=== PATIENT | male | born 1975 ===

== ENCOUNTER 2018-11-07 19:29 | Emergency (ER) | payer SELFPAY ==
--- NOTE | 2018-11-07 19:40 | Event Note ---
ED Screening Note Date of service: 11/07/18 Time: 19:36 ED Screening Note: This is a 43 y.o. M. that presents to the ER with right ear pain and painful bump on rectum. Pain in right ear is worse when he open his mouth. States bump on rectum is worse with sitting. States stools are liquid and solid balls for several weeks. PMH of HTN Blood pressure is elevated and patient took medication at midnight. Patient states he said something to PCP 4 months ago during visit and no change to med ication. He denies chest pain, SOB, palpitations, or visual changes. This initial assessment/diagnostic orders/clinical plan/treatment(s) is/are subject to change based on patients health status, clinical progression and re- assessment by fellow clinical providers in the ED. Further treatment and workup at subsequent clinical providers discretion. Patient/guardian urged not to elope from the ED as their condition may be serious if not clinically assessed and managed. Initial orders include:
[2018-11-07] MEDS ORDERED: CATAPRES PO ONE (21:35)
--- NOTE | 2018-11-07 21:40 | Emergency Department Report ---
ED ENT HPI - General Chief complaint: Earache Stated complaint: EAR PAIN Time Seen by Provider: 11/07/18 19:35 Source: patient Mode of arrival: Ambulatory Limitations: Language Barrier (licensed home inspector used) - History of Present Illness Initial comments: 43-year-old male with history of hypertension presents to ED with right ear pain and rectal pain. Patient reports onset of right ear pain one day ago, with associated discharge from the ear. Patient denies fever or sore throat. Denies any recent swimming activities. Patient also reports possible hemorrhoid. States has pain when he sits. Denies bloody stools. Patient also reported history of hypertension, states that he is noncompliant with his medication. States does not take his medication daily. Patient is currently on lisinopril, HCTZ, and metoprolol. MD complaint: ear pain -: days(s) (1) Location: R ear Severity: mild Quality: aching Consistency: constant Improves with: none Worsens with: eating Associated Symptoms: discharge from ear. denies: fever, cough, pain with swallowing, sore throat - Related Data Previous Rx's Medication Instructions Recorded Last Taken Type Amoxicillin [Amoxicillin TAB] 875 mg PO BID 10 Days #20 tablet 11/07/18 Unknown Rx Hydrocortisone [Anusol-Hc 2.5% TOP 1 applic RC BID PRN #30 gm 11/07/18 Unknown Rx CREAM] Naproxen [Naprosyn] 500 mg PO BID #20 tablet 11/07/18 Unknown Rx Allergies Allergy/AdvReac Type Severity Reaction Status Date / Time No Known Allergies Allergy Verified 11/07/18 19:32 ED Dental HPI - General Chief complaint: Earache Stated complaint: EAR PAIN Time Seen by Provider: 11/07/18 19:35 Source: patient Mode of arrival: Ambulatory Limitations: No Limitations - Related Data Previous Rx's Medication Instructions Recorded Last Taken Type Amoxicillin [Amoxicillin TAB] 875 mg PO BID 10 Days #20 tablet 11/07/18 Unknown Rx Hydrocortisone [Anusol-Hc 2.5% TOP 1 applic RC BID PRN #30 gm 11/07/18 Unknown Rx CREAM] Naproxen [Naprosyn] 500 mg PO BID #20 tablet 11/07/18 Unknown Rx Allergies Allergy/AdvReac Type Severity Reaction Status Date / Time No Known Allergies Allergy Verified 11/07/18 19:32 ED Review of Systems ROS: Stated complaint: EAR PAIN Other details as noted in HPI Comment: All other systems reviewed and negative Constitutional: denies: chills, fever ENT: ear pain. denies: throat pain Respiratory: denies: cough Gastrointestinal: other (reports rectal pain). denies: melena, hematochezia ED Past Medical Hx - Past Medical History Previous Medical History?: Yes Hx Hypertension: Yes - Surgical History Past Surgical History?: No - Social History Smoking Status: Never Smoker Substance Use Type: None - Medications Home Medications: Home Medications Medication Instructions Recorded Confirmed Last Taken Type Amoxicillin [Amoxicillin TAB] 875 mg PO BID 10 Days #20 tablet 11/07/18 Unknown Rx Hydrocortisone [Anusol-Hc 2.5% TOP 1 applic RC BID PRN #30 gm 11/07/18 Unknown Rx CREAM] Naproxen [Naprosyn] 500 mg PO BID #20 tablet 11/07/18 Unknown Rx ED Physical Exam - General Limitations: No Limitations General appearance: alert, in no apparent distress - Head Head exam: Present: atraumatic, normocephalic - Eye Eye exam: Present: normal appearance, PERRL, EOMI - ENT ENT exam: Absent: TM's normal bilaterally (right TM w/ erythema, discharge in canal) - Neck Neck exam: Present: normal inspection - Respiratory Respiratory exam: Present: normal lung sounds bilaterally. Absent: respiratory distress - Cardiovascular Cardiovascular Exam: Present: regular rate - GI/Abdominal GI/Abdominal exam: Absent: distended - Rectal Rectal exam: Present: hemorrhoids - Extremities Exam Extremities exam: Present: normal inspection - Neurological Exam Neurological exam: Present: alert, oriented X3, CN II-XII intact. Absent: motor sensory deficit - Psychiatric Psychiatric exam: Present: normal affect, normal mood - Skin Skin exam: Present: warm, dry, intact, normal color ED Course Vital Signs 11/07/18 11/07/18 11/07/18 19:32 19:35 21:26 Temperature 99.5 F 99.5 F 98.9 F Pulse Rate 94 H 94 H 93 H Respiratory 16 16 19 Rate Blood Pressure 219/146 Blood Pressure 219/146 195/125 [Right] O2 Sat by Pulse 97 97 96 Oximetry 11/07/18 11/07/18 11/07/18 21:49 21:50 22:19 Temperature Pulse Rate 90 Respiratory Rate Blood Pressure 168/115 203/133 184/129 Blood Pressure [Right] O2 Sat by Pulse Oximetry 11/07/18 11/07/18 22:49 23:00 Temperature Pulse Rate 78 Respiratory Rate Blood Pressure 189/133 Blood Pressure 168/101 [Right] O2 Sat by Pulse Oximetry ED Medical Decision Making - Medical Decision Making - pt advised to take BP meds daily - return precautions given - outpt f/u advised - Differential Diagnosis otitis media, otitis externa, HTN, hemorrhoids Critical care attestation.: If time is entered above; I have spent that time in minutes in the direct care of this critically ill patient, excluding procedure time. ED Disposition Clinical Impression: Otitis media, right, Hemorrhoids, Uncontrolled hypertension Disposition: TO HOME OR SELFCARE Is pt being admited?: No Condition: Stable Instructions: Hemorrhoids (ED), Otitis Media (ED), Hypertension (ED) Prescriptions: Amoxicillin [Amoxicillin TAB] 875 mg PO BID 10 Days #20 tablet Hydrocortisone [Anusol-Hc 2.5% TOP CREAM] 1 applic RC BID PRN #30 gm PRN Reason: Hemorrhoids Naproxen [Naprosyn] 500 mg PO BID #20 tablet [facility] [Primary Care Provider] - 3-5 Days Print Language: UKRAINIAN
[2018-11-07 23:41] VITALS: BP 168/101
== END 2018-11-07 23:10 | disposition home or self-care (01) ==
LOC: ED 19:29
DX: H66.91 Otitis media, unspecified, right ear (principal); K64.9 Unspecified hemorrhoids; I10 Essential (primary) hypertension